=== PATIENT | male | born 1945 | race Caucasian/White ===

== ENCOUNTER 2017-03-10 15:46 | Emergency (ER) | payer MEDICARE, BC ==
--- NOTE | 2017-03-13 12:41 | ER ---
ADMIT: 03/10/2017 RM/LOC: ER [facility] MR#: [id number] [address] [id number] MOOKIE BALLESTEROS [address] [place] [address] Emergency Room Report SEX: M AGE: 71 : 1945 DATE: 03/10/2017 ADDENDUM: A 71-year-old white male coming in with chest pain, actually this is more of chest wall pain and that it is reproduced if he brings his chin to his chest or if he turns his neck. He has had some problems with his neck over the years, but this is not brought on by exertion or other findings that would suggest cardiac. EKG, chest x-ray, CBC, chemistry, troponin were all negative. We will discharge him with the idea that he is going to follow up with Dr. Solomon this week. CONDITION ON DISCHARGE: Good. Kannan Rowell MD/ jaleesa JOB #: [id number] CC: Kannan Rowell MD, Attending Physician Shade Solomon DO, Family Physician
== END 2017-03-10 17:10 | disposition home or self-care (01) ==
LOC: ER 15:46
DX: R07.89 Other chest pain (principal); I10 Essential (primary) hypertension; Z79.899 Other long term (current) drug therapy; Z98.49 Cataract extraction status, unspecified eye